=== PATIENT | female | born 1995 | race Caucasian/White ===

== ENCOUNTER 2017-06-11 02:45 | Emergency (ER) | payer OTHER ==
[~2017-06-11] VITALS: Ht 160 cm; Wt 43.0 kg
[2017-06-11 02:48] VITALS: Ht 160 cm; Wt 43.0 kg
--- NOTE | 2017-06-11 02:49 | ERA ---
ER Documentation Chief Complaint Date/Time DATE: 06/11/17 TIME: 02:49 Chief Complaint Abdominal pain HPI The patient is a 22-year-old female, presenting with moderate lower abdominal pain that began around 2:30 AM, she denies similar symptoms previously, denies fever, chills, neck pain, chest pain, dyspnea, dysuria, diarrhea, constipation. She does not smoke nor drink Past medical/surgical history: None ROS All systems reviewed and are negative except as per history of present illness. Medications Home Meds Active Scripts Ibuprofen* (Motrin*) 400 Mg Tab, 400 MG PO Q6, #20 TAB Prov:HOLLAND DANIEL MD 06/11/17 Hydrocodone/Acetaminophen (Chancellor 5-325 Tablet) 1 Each Tablet, 1 TAB PO Q6H Y for PAIN, #7 TAB Prov:HOLLAND DANIEL MD 06/11/17 Allergies Allergies: Coded Allergies: No Known Allergy (Unverified , 06/11/17) Physical Exam Vitals Vital Signs Date Time Temp Pulse Resp B/P Pulse Ox O2 Delivery O2 Flow Rate FiO2 06/11/17 02:48 97.9 81 19 126/81 100 Physical Exam Const: No acute distress. Head: Atraumatic. Eyes: Normal Conjunctiva. ENT: Normal External Ears, Nose and Mouth. Neck: Full range of motion. No meningismus. Resp: Clear to auscultation bilaterally. Cardio: Regular rate and rhythm. Abd: Soft, non distended, normal bowel sounds, Moderate lower abdominal tenderness, more on the right than the left, no rigidity, rebound, CVA tenderness. Mild right pelvic tenderness Skin: No petechiae or rashes. Back: No midline or flank tenderness. Ext: No cyanosis, or edema. Neur: Awake and alert. No focal deficit Psych: Normal Mood and Affect. Result Diagram: 06/11/17 0310 06/11/17 0310 Results 24 hrs Laboratory Tests Test 06/11/17 03:10 06/11/17 03:26 White Blood Count 10.010^3/ul Red Blood Count 4.4910^6/ul Hemoglobin 12.9g/dl Hematocrit 39.4% Mean Corpuscular Volume 87.8fl Mean Corpuscular Hemoglobin 28.7pg Mean Corpuscular Hemoglobin Concent 32.7g/dl Red Cell Distribution Width 12.4% Platelet Count 70214^3/UL Mean Platelet Volume 10.2fl Neutrophils % 66.4% Lymphocytes % 28.2% Monocytes % 4.5% Eosinophils % 0.4% Basophils % 0.2% Nucleated Red Blood Cells % 0.0/100WBC Neutrophils # 6.610^3/ul Lymphocytes # 2.810^3/ul Monocytes # 0.510^3/ul Eosinophils # 0.010^3/ul Basophils # 0.010^3/ul Nucleated Red Blood Cells # 0.010^3/ul Sodium Level 143mmol/L Potassium Level 3.2mmol/L Chloride Level 107mmol/L Carbon Dioxide Level 23mmol/L Anion Gap 16 Blood Urea Nitrogen 7mg/dl Creatinine 0.61mg/dl Glucose Level 97mg/dl Calcium Level 9.2mg/dl Total Bilirubin 0.3mg/dl Direct Bilirubin 0.00mg/dl Indirect Bilirubin 0.3mg/dl Aspartate Amino Transf (AST/SGOT) 19IU/L Alanine Aminotransferase (ALT/SGPT) 23IU/L Alkaline Phosphatase 51IU/L Total Protein 7.7g/dl Albumin 4.6g/dl Globulin 3.10g/dl Albumin/Globulin Ratio 1.48 Lipase 68U/L Bedside Urine pH (LAB) 7.5 Bedside Urine Protein (LAB) Negative Bedside Urine Glucose (UA) Negative Bedside Urine Ketones (LAB) Negative Bedside Urine Blood Trace-lysed Bedside Urine Nitrite (LAB) Negative Bedside Urine Leukocyte Esterase (L Negative Current Medications Medications (Trade) Dose Ordered Sig/Ruthann Route PRN Reason Start Time Stop Time Status Last Admin Dose Admin Sodium Chloride (NS) 1,000 ml @ 1,000 mls/hr Q1H ONCE IV 06/11/17 03:00 06/11/17 03:59 DC 06/11/17 03:13 Morphine Sulfate (morphine) 2 mg ONCE ONCE IV 06/11/17 03:00 06/11/17 03:01 DC 06/11/17 03:12 Ondansetron HCl (Zofran Inj) 4 mg ONCE STAT IV 06/11/17 02:52 06/11/17 02:57 DC 06/11/17 03:12 Potassium Chloride (Klor-Con 20) 40 meq ONCE ONCE PO 06/11/17 04:05 06/11/17 04:07 DC 06/11/17 04:12 Ketorolac Tromethamine (Toradol) 30 mg ONCE STAT IV 06/11/17 04:09 06/11/17 04:10 DC 06/11/17 04:18 Procedures/MDM [place] [address] Radiology Main Line: [phone] DIAGNOSTIC IMAGING REPORT Patient: ED ROCK : 1995 Age: 22 Sex: F MR #: [id number] DOS: 06/11/17 0252 Ordering MD: HOLLAND DANIEL MD Location: E/R Room/Bed: PROCEDURE: Pelvic ultrasound, limited. CLINICAL INDICATION: Pelvic pain. TECHNIQUE: Multiple sonographic images of the pelvis were obtained utilizing a transabdominal technique. The images were reviewed on a PACS workstation. COMPARISON: None. FINDINGS: The uterus is visualized and measures 7.6 x 4.2 x 5.3 cm. No abnormal uterine mass is identified. The endometrial echo complex is homogeneous and measures 10.9 mm. There is mild free fluid within the right adnexa. The right ovary measures 3.9 x 2.9 x 3.7 cm and demonstrates normal flow. There is a hypoechoic cyst within the right ovary with internal echogenicities measuring 2.3 x 2.0 x 2.0 cm. The left ovary is not visualized. No adnexal masses are identified. IMPRESSION: Right ovarian 2.3 cm probable hemorrhagic cyst. Mild pelvic free fluid. Left ovary not visualized. .Jared Isabel MD, Date Time Electronically viewed and signed by .Jared Isabel MD, on 06/11/2017 03:55 .T/ CC: HOLLAND DANIEL MD [place] [address] Radiology Main Line: [phone] DIAGNOSTIC IMAGING REPORT Patient: ED ROCK : 1995 Age: 22 Sex: F MR #: [id number] DOS: 06/11/17 0252 Ordering MD: HOLLAND DANIEL MD Location: E/R Room/Bed: PROCEDURE: CT Abdomen and pelvis without contrast. CLINICAL INDICATION: Abdominal pain. TECHNIQUE: CT scan of the abdomen and pelvis was performed on a multi- detector high-resolution CT scanner. Contiguous axial images were obtained from the lung bases to the ischial tuberosities without intravenous contrast. Coronal and sagittal reformatted images were also obtained. Images were reviewed on the PACS workstation. One or more of the following dose reduction techniques were used: - Automated exposure control. - Adjustment of the mA and/or kV according to patient size. - Use of iterative reconstruction technique. Exam CTD/vol = 4.72 mGy. Total exam DLP = 257.62 mGy-cm. COMPARISON: None. FINDINGS: Evaluation of the lung bases demonstrates no pleural or parenchymal disease. Abdomen: The liver is normal in size. There is no focal mass or dilatation of the biliary tree. The gallbladder is not distended. The spleen, pancreas and bilateral adrenal glands are within normal limits. Bilateral kidneys are normal in size with no contour deforming mass identified. There is no radiopaque renal or ureteral calculus identified. There is no hydronephrosis or hydroureter. There is no retroperitoneal adenopathy. The abdominal aorta is of normal caliber. There is moderate retained stool within the colon. There is no bowel obstruction or free air. The appendix is not visualized. There is no diverticulosis or diverticulitis. There is no ascites. Pelvis: The bladder is unremarkable. The uterus and adnexa are within normal limits. There is mild pelvic stranding and free fluid. There is no significant pelvic adenopathy. Evaluation of the osseous structures demonstrates no suspicious lytic or blastic lesion. IMPRESSION: Moderate retained stool within the colon. Appendix not visualized. If there is clinical suspicion for appendicitis, repeat study can be done with oral and intravenous contrast. Mild pelvic stranding and free fluid. Further evaluation can be made by pelvic ultrasound if clinically warranted. .Jared Isabel MD, Date Time Electronically viewed and signed by .Jared Isabel MD, MD on 06/11/2017 03:42 .T/ CC: HOLLAND DANIEL MD MEDICAL MAKING DECISION: The patient is a 22-year-old female, presenting with probable acute right ovarian hemorrhagic cyst, acute hypokalemia. She was treated with 1 L normal saline for clinical dehydration, morphine 2 mg IV, Toradol 30 mg IV for pain and Zofran 4 mg IV for nausea and potassium chloride 40 mEq p.o. for acute hypokalemia with good response The differential diagnoses considered include but are not limited to cholelithiasis, cholecystitis, cystitis, pancreatitis, hepatitis, gastritis, peptic ulcer disease, gastric ulcer, appendicitis, diverticulitis, cholangitis, choledocholithiasis, partial small bowel obstruction, ovarian torsion, PID, UTI. Consultation: I discussed the patient with the on-call food editor Dr. Jose, who was made aware of the lab, the treatment, the patient condition. She recommend discharged and she would follow up with the patient in the office Departure Diagnosis: Primary Impression: Hemorrhagic cyst of right ovary Additional Impression: Hypokalemia Condition: Good Comments She was discharged with Motrin, Chancellor I discussed the findings with the patient. I advised the patient to follow-up with the food editor Dr Jose in about 1-2 days, sooner if needed and return if any concern. The patient's blood pressure was elevated (>120/80) but appears stable without evidence of hypertension emergency or urgency. The patient was counseled about the risks of hypertension and urged to pursue outpatient monitoring and therapy within a week with their primary care physician. HOLLAND DANIEL MD Jun 11, 2017 02:49
[2017-06-11] MEDS ORDERED: ONDANSETRON 4 MG INJ IV STA (02:52)
[2017-06-11] MEDS ORDERED: SOD CHLORIDE 0.9% 1,000 ML IV ONE (03:00)
[2017-06-11] MEDS ORDERED: morphine 2 MG INJ IV ONE (03:00)
[2017-06-11 03:19] LABS: URINE BLOOD (Dip) POC Trace-lysed (NEGATIVE)
[2017-06-11 03:30] LABS: BASOPHILS % 0.2 % (0.0-2.0); EOSINOPHILS % 0.4 % (0.0-7.0); HEMATOCRIT 39.4 % (37.0-47.0); HEMOGLOBIN 12.9 g/dl (12.0-16.0); LYMPHOCYTES # 2.8 10^3/ul (0.8-2.9); LYMPHOCYTES % 28.2 % (18.0-55.0); MEAN CORPUSCULAR HEMOGLOBIN 28.7 pg (29.0-33.0); MEAN CORPUSCULAR HGB CONC 32.7 g/dl (32.0-37.0); MEAN CORPUSCULAR VOLUME 87.8 fl (72.0-104.0); MEAN PLATELET VOLUME 10.2 fl (7.4-10.4); MONOCYTE # 0.5 10^3/ul (0.3-0.9); MONOCYTES % 4.5 % (0.0-13.0); NEUTROPHIL # 6.6 10^3/ul (1.6-7.5); NEUTROPHILS % 66.4 % (30.0-74.0); PLATELET COUNT 206 10^3/UL (140-415); RED BLOOD COUNT 4.49 10^6/ul (4.20-5.40); RED CELL DISTRIBUTION WIDTH 12.4 % (11.5-14.5)
--- NOTE | 2017-06-11 03:42 | RADRPT ---
PROCEDURE: CT Abdomen and pelvis without contrast. CLINICAL INDICATION: Abdominal pain. TECHNIQUE: CT scan of the abdomen and pelvis was performed on a multi-detector high-resolution CT scanner. Contiguous axial images were obtained from the lung bases to the ischial tuberosities wit hout intravenous contrast. Coronal and sagittal reformatted images were also obtained. Images were reviewed on the PACS workstation. One or more of the following dose reduction techniques were used: - Automated exposure control. - Adjustment of the mA and/or kV according to patient size. - Use of iterative reconstruction technique. Exam CTD/vol = 4.72 mGy. Total exam DLP = 257.62 mGy-cm. COMPARISON: None. FINDINGS: Evaluation of the lung bases demonstrates no pleural or parenchymal disease. Abdomen: The liver is normal in size. There is no focal mass or dilatation of the biliary tree. T he gallbladder is not distended. The spleen, pancreas and bilateral adrenal glands are within roni l limits. Bilateral kidneys are normal in size with no contour deforming mass identified. There is no radiopaque renal or ureteral calculus identified. There is no hydronephrosis or hydroureter. T here is no retroperitoneal adenopathy. The abdominal aorta is of normal caliber. There is moderate retained stool within the colon. There is no bowel obstruction or free air. The appendix is not visualized. There is no diverticulosis or diverticulitis. There is no ascites. Pelvis: The bladder is unremarkable. The uterus and adnexa are within normal limits. There is mil d pelvic stranding and free fluid. There is no significant pelvic adenopathy. Evaluation of the osseous structures demonstrates no suspicious lytic or blastic lesion. IMPRESSION: Moderate retained stool within the colon. Appendix not visualized. If there is clinical suspicion for appendicitis, repeat study can be done w ith oral and intravenous contrast. Mild pelvic stranding and free fluid. Further evaluation can be made by pelvic ultrasound if clinica lly warranted. .Jared Isabel MD, MD Date Time Electronically viewed and signed by .Jared Isabel MD, MD on 06/11/2017 03:42 .T/
--- NOTE | 2017-06-11 03:55 | RADRPT ---
PROCEDURE: Pelvic ultrasound, limited. CLINICAL INDICATION: Pelvic pain. TECHNIQUE: Multiple sonographic images of the pelvis were obtained utilizing a transabdominal edmundo hnique. The images were reviewed on a PACS workstation. COMPARISON: None. FINDINGS: The uterus is visualized and measures 7.6 x 4.2 x 5.3 cm. No abnormal uterine mass is identified. T he endometrial echo complex is homogeneous and measures 10.9 mm. There is mild free fluid within the right adnexa. The right ovary measures 3.9 x 2.9 x 3.7 cm and d emonstrates normal flow. There is a hypoechoic cyst within the right ovary with internal echogenicit ies measuring 2.3 x 2.0 x 2.0 cm. The left ovary is not visualized. No adnexal masses are identifie d. IMPRESSION: Right ovarian 2.3 cm probable hemorrhagic cyst. Mild pelvic free fluid. Left ovary not visualized. .Jared Isabel MD, Date Time Electronically viewed and signed by .Jared Isabel MD, on 06/11/2017 03:55 .T/
[2017-06-11 04:00] LABS: ALBUMIN 4.6 g/dl (3.3-4.9); ALBUMIN/GLOBULIN RATIO 1.48; BILIRUBIN,INDIRECT 0.3 mg/dl (0-1.1); BILIRUBIN,TOTAL 0.3 mg/dl (0.2-1.3); CALCIUM 9.2 mg/dl (8.4-10.2); CREATININE 0.61 mg/dl (0.44-1.00); POTASSIUM 3.2 mmol/L (3.5-5.1); TOTAL PROTEIN 7.7 g/dl (6.1-8.1)
[2017-06-11] MEDS ORDERED: POTASSIUM CHLORIDE (SR) 20 MEQ TAB PO ONE (04:05)
[2017-06-11] MEDS ORDERED: KETOROLAC 30 MG INJ IV STA (04:09)
[2017-06-11] MEDS ORDERED: IBUP400T22 PO (04:23)
[2017-06-11] MEDS ORDERED: HYDR-906 PO (04:23)
[2017-06-11 04:35] VITALS: BP 121/72; PULSE 81; RESP 19; TEMP 97.9
== END 2017-06-11 04:36 | disposition home or self-care (01) ==
LOC: E/R 02:45
DX: N83.201 Unspecified ovarian cyst, right side (principal); E87.6 Hypokalemia; R10.2 Pelvic and perineal pain
CPT/HCPCS: 74176; 76856; 80053; 81003; 83690; 85025; 96374; 96375; J1885; J2270; J2405; J7030; Z7502; Z7610